=== PATIENT | female | born 1955 | race Hispanic/Latino ===

== ENCOUNTER → 2025-06-21 | Outpatient (CLI) | payer OTHER, MEDICARE ==
[~2025-06-21] VITALS: Ht 162.6 cm; Wt 120.8 kg
[~2025-06-21] MED LIST: ALBU18HF7 IH; APIX5TAB PO; ASPI-1197 PO; ATOR40TA71 PO; DRY EYE RELIEF OU; EMPA25TA PO; FAMO20TA8 PO; FLUT16H NS; FLUT1BLS3 IH; FURO40TA5 PO; GABA300C PO; INSU300I SQ; ISOS30TA92 PO; LEVO100T12 PO; LIRA0.6P2 SQ; METF-446 PO; METO25TA6 PO; MONT-39 PO; VENL50TA29 PO
[2025-06-21 10:20] LABS: IMMATURE GRANULOCYTE ABSOLUTE 0.03 K/uL (0-1); NUCLEATED RED BLOOD CELLS 0.0 % (0.0-0.19); PLATELET COUNT (AUTO) 354 K/uL (130-400); RED BLOOD CELL COUNT(AUTO) 5.06 MIL/uL (4.00-5.50); RED CELL DISTRIBUTION WIDTH 21.2 % (11.0-15.5); WHITE BLOOD COUNT (AUTO) 8.9 K/uL (4.8-10.8)
[2025-06-21 10:27] LABS: CREATININE 0.8 mg/dL (0.5-1.0); GLOMERULAR FILTR. RATE CALC 80.0 mL/min (>90); GLUCOSE,RANDOM 114.0 mg/dL (70-105); SODIUM SERUM 139.0 mmol/L (136-145); UREA NITROGEN, BLOOD 18.0 mg/dL (7-18)
[2025-06-21 10:29] VITALS: BP 136/76; PULSE 98; RESP 18; TEMP 97.4
[2025-06-21 10:30] LABS: INR 1.06 (0.85-1.15)
[2025-06-21 10:45] LABS: APPEARANCE,URINE CLOUDY (CLEAR); GLUCOSE, URINE (UA) >=1000 mg/dL (NEGATIVE); LEUKOCYTE ESTERASE ,URINE 75 Leu/uL (NEGATIVE); NITRATE,URINE NEGATIVE (NEGATIVE); OCCULT BLOOD,URINE LARGE (NEGATIVE)
--- NOTE | 2025-06-21 11:07 | EKG ---
[facility] Test Date: 2025-06-21 Test Time: 09:58:47 Pat Name: MIGUEL SINGH Department: [facility] Room: Gender: F Addiction Nurse: [id number] : [id number] Requested By: ANTHONY JONES Order Number: [id number] Reading MD: Blaise Martin Measurements Intervals [place] Rate: 94 P: 0 SC: 0 QRS: 97 QRSD: 88 T: 16 QT: 367 QTc: 461 Interpretive Statements Atrial fibrillation Right axis deviation No previous ECG available for comparison Electronically Signed On 06-21-2025 20:28:55 CDT by Blaise Martin Please click the below link to view image of tracing.
[2025-06-21 11:09] LABS: ADD UA MICROSCOPIC YES
[2025-06-21 11:12] LABS: SQUAMOUS EPITHELIAL CELL,UR RARE /HPF (0-2)
--- NOTE | 2025-06-21 17:00 | NUR ---
report reported cbc and ua to dr jaren todd. received instructions to cancel procedure and instruct pt to go see pcp in am. pt aware.
--- NOTE | 2025-06-22 07:44 | HMCIMG ---
EXAM: CR Chest, 1 views. CLINICAL HISTORY: Cough. COMPARISON: None provided. FINDINGS: Plate like atelectasis in right middle lobe. No pleural effusion or pneumothorax. Mild cardiomegaly. Atherosclerotic aortic calcification. No acute osseous abnormality. IMPRESSION: Plate like atelectasis in right middle lobe. Mild cardiomegaly. Atherosclerotic aortic calcification. /[place]
== END | disposition home or self-care (01) ==
LOC: DAH 09:22 → EDSTATUS 10:00
PROVIDERS: ATTEND Student in an Organized Health Care Education/Training Program
DX: Z01.818 Encounter for other preprocedural examination (principal); I25.10 Atherosclerotic heart disease of native coronary artery without angina pectoris; I51.7 Cardiomegaly; I48.91 Unspecified atrial fibrillation; I70.0 Atherosclerosis of aorta; J98.11 Atelectasis; Z79.899 Other long term (current) drug therapy
CPT/HCPCS: 36415; 71045; 80048; 81001; 83880; 85025; 85610; 85730; 87086; 93005